=== PATIENT | male | born 1965 | race Caucasian/White ===

== ENCOUNTER 2022-08-22 16:50 | Emergency (ER) | payer SELFPAY ==
[~2022-08-22] VITALS: Ht 165.1 cm; Wt 80.1 kg
[2022-08-22 17:02] VITALS: BP 104/66
--- NOTE | 2022-08-22 17:47 | NUR ---
C/O DIZZINESS,8/10 Headache , LOSS OF BALANCE X 2 DAYS. BP 104/66 AT THIS TIME. PMH: DENIES [employer]USTRI[employer] CUSTODIAN:THUAN [id number]
[2022-08-22 18:13] LABS: BASOPHILS % (AUTO) 0.8 % (0.0-2.0); EOSINOPHILS # (AUTO) 0.1 K/uL (0-0.4); EOSINOPHILS % (AUTO) 1.2 % (0.0-4.0); HEMATOCRIT 42.7 % (36-52); HEMOGLOBIN 14.7 g/dL (12.0-18.0); LYMPHOCYTES # (AUTO) 2.1 K/uL (2.0-11.5); LYMPHOCYTES % (AUTO) 36.1 % (20.5-51.1); MEAN CORPUSCULAR HEMOGLOBIN 32 pg (27-31); MEAN CORPUSCULAR HGB CONC 34 g/dL (33-37); MEAN CORPUSCULAR VOLUME 91.8 fL (80-94); MONOCYTES # (AUTO) 0.4 K/uL (0.8-1.0); MONOCYTES % (AUTO) 6.4 % (1.7-9.3); NEUTROPHILS # (AUTO) 3.3 K/uL (1.8-7.7); NEUTROPHILS % (AUTO) 55.5 % (42.2-75.2); PLATELET COUNT (AUTO) 261 K/uL (140-450); RED BLOOD CELL COUNT(AUTO) 4.65 MIL/uL (4.20-6.10); RED CELL DISTRIBUTION WIDTH 13.6 % (11.6-13.7); WHITE BLOOD COUNT (AUTO) 5.9 K/uL (4.8-10.8)
[2022-08-22] MEDS: MECLIZINE 25 MG TAB PO ONE (18:13)
[2022-08-22] MEDS: METOCLOPRAMIDE 10 MG TAB PO ONE (18:13)
--- NOTE | 2022-08-22 18:13 | NUR ---
PT WHEELCHAIR ASSISTED TO BED 7
[2022-08-22 18:22] LABS: APPEARANCE,URINE CLEAR (CLEAR); BILIRUBIN,URINE NEGATIVE (NEGATIVE); BLOOD, URINE NEGATIVE (NEGATIVE); COLOR,URINE YELLOW (YELLOW); LEUKOCYTE ESTERASE ,URINE NEGATIVE (NEGATIVE); NITRITE, URINE NEGATIVE (NEGATIVE); PH,URINE 6.5 (5.0-9.0); UGLUCOSE NEGATIVE (NEGATIVE)
[2022-08-22 18:34] LABS: ANION GAP 9.6 (8-16); POTASSIUM 3.6 mmol/L (3.5-5.1)
[2022-08-22 18:39] LABS: ALBUMIN 3.7 g/dL (3.4-5.0); MAGNESIUM 2.1 mg/dL (1.8-2.4)
--- NOTE | 2022-08-22 18:42 | NUR ---
Anaid abad in [facility] - 08/22/22 at 1900 by [facility]SE[facility] PT TAKEN TO CT VIA VINNY
--- NOTE | 2022-08-22 18:42 | NUR ---
PT TAKEN TO CT VIA WHEELCHAIR
--- NOTE | 2022-08-22 18:55 | NUR ---
PT BROUGHT BACK VIA WHEELCHAIR
--- NOTE | 2022-08-22 19:04 | NUR ---
made aware of pt vitals
--- NOTE | 2022-08-22 19:27 | NUR ---
REPORT GIVEN TO AMELIA SCOTT . TRANSFER OF CARE AT THIS TIME
[2022-08-22] MEDS: NACL 0.9% 1,000 ML IV ONE (19:45)
--- NOTE | 2022-08-22 20:15 | NUR ---
PT BACK FROM CT
[2022-08-22] MEDS ORDERED: PROCHLORPERAZINE 10 MG/2 ML VIAL ONE (20:45)
[2022-08-22] MEDS: MAG SULF 2000 MG/WATER PREMIX 50 ML IV ONE (21:23)
[2022-08-22] MEDS: PROCHLORPERAZINE 10 MG/2 ML VIAL IVP ONE (21:23)
--- NOTE | 2022-08-22 21:27 | NUR ---
PT REUSING TO BE ADMITED. PT STATES HE CANT BE FOR ECOMONIC ISSUES. PT UNDERSTANDS THE RISK OF LEAVING. AMA FORM TO BE SIGNED BY PT. DR MICHAEL NOTIFED
[2022-08-22 21:53] VITALS: BP 102/64
--- NOTE | 2022-08-22 21:53 | NUR ---
Patient does not wish to proceed with medical care recommended by DR MICHAEL. Patient given information related to possible complications, up to and including , which could occur as a result of leaving hospital at this time. Patient verbalizes understanding of risks involved leaving against medical advice. Patient has signed AMA form.
--- NOTE | 2022-09-01 12:34 | NUR ---
LATE ENTRY -- MAG SULFATE INFUSION COMPLETED AT 2100 08/22/22
== END 2022-08-22 21:53 | disposition left against medical advice (07) ==
LOC: MED 16:50
DX: R42 Dizziness and giddiness (principal); R51.9 Headache, unspecified; Z53.29 Procedure and treatment not carried out because of patient's decision for other reasons
CPT/HCPCS: 36415; 70450; 70496; 70498; 80053; 81003; 83735; 84100; 85025; 96365; 96366; 96375; 99285; J0780; J3475; J7030; J8597; Q0163; Q9967; 96361

== ENCOUNTER 2022-09-24 16:57 | Emergency (ER) | payer SELFPAY ==
[~2022-09-24] VITALS: Ht 170.2 cm; Wt 77.1 kg
[2022-09-24 17:14] VITALS: BP 123/69
--- NOTE | 2022-09-24 17:46 | NUR ---
ASSUMED PATIENT CARE, NURSING ASSESSMENT COMPLETED.
[2022-09-24] MEDS ORDERED: IBUP-2213 PO (17:52)
[2022-09-24] MEDS ORDERED: DOCU-299 PO (17:52)
[2022-09-24 18:12] VITALS: BP 120/65
--- NOTE | 2022-09-24 18:14 | NUR ---
Patient discharged with v/s stable. Written and verbal after care instructions given and explained. Patient alert, oriented and verbalized understanding of instructions. Ambulatory with steady gait. All questions addressed prior to discharge. ID band removed. Patient advised to follow up with PMD. Rx of DUCOSATE, IBUPROFEN given. Patient educated on indication of medication including possible reaction and side effects. Opportunity to ask questions provided and answered.
== END 2022-09-24 18:12 | disposition home or self-care (01) ==
LOC: MED 16:57
DX: K64.9 Unspecified hemorrhoids (principal); K62.5 Hemorrhage of anus and rectum
CPT/HCPCS: 99282